=== PATIENT | male | born 1945 | race African-American/Black ===

== ENCOUNTER 2018-01-22 13:23 | Emergency (ER) | payer OTHER ==
[~2018-01-22] VITALS: Ht 185.4 cm; Wt 72.6 kg
[2018-01-22 14:04] LABS: ABSOLUTE BASOPHIL COUNT 0 /CUMM (0.0-0.2); ABSOLUTE EOSINOPHIL COUNT 0.1 /CUMM (0.0-0.7); ABSOLUTE GRANULOCYTE CT 4.6 /CUMM (1.4-6.5); ABSOLUTE MONOCYTE COUNT 0.6 /CUMM (0.10-0.60); BASOPHIL % 0.3 % (0.0-2.0); EOSINOPHIL % 1.5 % (0-5); GRANULOCYTE % 73.4 % (42.2-75.2); MEAN CORPUSCULAR HGB 31.4 PG (27.0-31.0); MEAN CORPUSCULAR HGB CONC 32.8 G/DL (33.0-37.0); MEAN CORPUSCULAR VOLUME 95.9 FL (80.0-94.0); MEAN PLATELET VOLUME 7.2 FL (7.4-10.4); PLATELET COUNT 303 /CUMM (130-400); RED BLOOD CELL CT 3.54 /CUMM (4.70-6.10); WHITE BLOOD CELL COUNT 6.3 /CUMM (4.8-10.8)
--- NOTE | 2018-01-22 14:10 | ED GENERAL ADULT ---
History of Present Illness General Chief Complaint: General Adult Stated Complaint: SENT BY [facility] FOR IV FLUIDS Source: patient, family, old records Exam Limitations: no limitations Vital Signs & Intake/Output Vital Signs & Intake/Output Vital Signs Date Time Temp Pulse Resp B/P B/P Pulse O2 O2 Flow FiO2 Mean Ox Delivery Rate 01/22 1547 96.6 86 19 96 Room Air 01/22 1444 Room Air 01/22 1352 98.0 96 18 112/75 99 Room Air Allergies Coded Allergies: NO KNOWN ALLERGIES (08/20/13) Reconcile Medications Allopurinol 100 MG TABLET 1 TAB PO DAILY GOUT (Reported) Amiodarone (Cordarone) 200 MG TAB 1 TAB PO DAILY HEART (Reported) Diclofenac Sodium (Voltaren) 1 % GEL..GRAM. 2 GM TOP BID PAIN (Reported) Duloxetine HCl 30 MG CAPSULE.DR 1 CAP PO DAILY DEPRESSION (Reported) Fentanyl 100 MCG/HOUR PATCH.TD72 1 PAT TOP Q3D PAIN (Reported) Fentanyl 25 MCG/HOUR PATCH.TD72 1 PAT TOP Q3D PAIN (Reported) Furosemide 20 MG TABLET 1 TAB PO DAILY WATER RETENTION (Reported) Lactulose 10 GRAM/15 ML SOLUTION 15 ML PO DAILY NEEDED PRN CONSTIPATION ( Reported) Levothyroxine Sodium (Levoxyl) 88 MCG TABLET 1 TAB PO DAILY AC THYROID ( Reported) Linaclotide (Linzess) 290 MCG CAPSULE 1 CAP PO DAILY GI (Reported) Lubiprostone (Amitiza) 24 MCG CAPSULE 1 CAP PO DAILY GI (Reported) Megestrol Acetate 400 MG/10 ML (40 MG/ML) ORAL.SUSP 10 ML PO DAILY GI ( Reported) Metoclopramide HCl (Reglan) 10 MG TABLET 2 TAB PO DAILY GI (Reported) Metoclopramide HCl (Reglan) 10 MG TABLET 1 TAB PO QPM GI (Reported) Naldemedine Tosylate (Symproic) 0.2 MG TABLET 1 TAB PO UNKNOWN (Reported) Naloxegol Oxalate (Movantik) 25 MG TABLET 1 TAB PO DAILY GI (Reported) Nystatin 1 BILLION UNIT POWDER.EA. 1 RANJITH TOP BID UNKNOWN (Reported) Ondansetron HCl 8 MG TABLET 1 TAB PO Q8P PRN NAUSEA/VOMITING (Reported) Oxycodone HCl 5 MG TABLET 1 TAB PO Q6-PRN PRN PAIN (Reported) Rabeprazole Sodium (Aciphex) 20 MG TABLET. 1 TAB PO BID GI (Reported) Rifaximin (Xifaxan) 550 MG TABLET 1 TAB PO BID GI (Reported) Sodium Bicarbonate 650 MG TABLET 1 TAB PO BID SUPPLEMENT (Reported) Tamsulosin HCl 0.4 MG CAP.ER.24H 1 CAP PO DAILY PROSTATE (Reported) Triage Note: PT SIB DR JIMENEZ FOR IVF, PT STATING HE HAS VOMITING EARLIER THIS WEEK, HAD BLOODWORK DONE "THAT SHOWED IM DRY". PT STATING HE IS FEELING WELL OTHERWISE, TOLERATING PO FLUIDS IN TRIAGE. Triage Nurses Notes Reviewed? yes HPI: Patient suffers from chronic constipation so takes a lot of stool softeners. Patient states that anything on that he gets into an episode where he has perfuse diarrhea. Patient started with diarrhea roughly 5 days ago. He denies any abdominal pain. He did have slight nausea and dry heaving a few days ago. That has subsequently resolved. Patient had outpatient blood work and showed his creatinine was 5.5. His baseline creatinine is 1.7. Patient denies any chest pain or shortness of breath. There are no fevers or chills. Past History Travel History Traveled to [place] past 21 day No Medical History Any Pertinent Medical History? see below for history Neurological: NONE EENT: NONE Cardiovascular: MURMUR Respiratory: asthma Gastrointestinal: COLON CA COLOSTOMY Hepatic: NONE Renal: NONE Musculoskeletal: NONE Psychiatric: NONE Endocrine: NONE Blood Disorders: NONE Cancer(s): MULTIPLE MYELOMA COLON CA History of MRSA: No History of VRE: No History of CDIFF: No Pneumonia Vaccine: 09/01/12 Influenza Vaccine: 08/22/04 Surgical History Surgical History: non-contributory Psychosocial History Who do you live with Spouse Services at Home Nursing What is your primary language Persian Tobacco Use: Never used ETOH Use: denies use Illicit Drug Use: denies illicit drug use Family History Hx Contributory? No Review of Systems Review of Systems Constitutional: Reports: no symptoms. EENTM: Reports: no symptoms. Respiratory: Reports: no symptoms. Cardiovascular: Reports: no symptoms. GI: Reports: see HPI, diarrhea. Genitourinary: Reports: no symptoms. Musculoskeletal: Reports: no symptoms. Skin: Reports: no symptoms. Neurological/Psychological: Reports: no symptoms. Hematologic/Endocrine: Reports: no symptoms. Immunologic/Allergic: Reports: no symptoms. All Other Systems: Reviewed and Negative Physical Exam Physical Exam General Appearance: well developed/nourished, alert, awake, anxious, mild distress Head: atraumatic, normal appearance Eyes: Bilateral: PERRL, EOMI. Ears, Nose, Throat: normal pharynx, normal ENT inspection, DRY MUCOSA Neck: normal inspection, supple, full range of motion Respiratory: normal breath sounds, chest non-tender, no respiratory distress, lungs clear Cardiovascular: regular rate/rhythm, normal peripheral pulses Gastrointestinal: normal bowel sounds, soft, non-tender, no organomegaly Extremities: normal inspection, normal capillary refill, normal range of motion, no edema Neurologic/Psych: no motor/sensory deficits, awake, alert, oriented x 3, normal mood/affect Skin: intact, normal color, warm/dry Core Measures ACS in differential dx? No CVA/TIA Diagnosis: No Sepsis Present: No Sepsis Focused Exam Completed? No Progress Differential Diagnoses I considered the following diagnoses in my evaluation of the patient: [Acute renal failure, dehydration, electrolyte abnormality] Plan of Care: Orders Procedure Date/time Status EKG 01/22 1426 Active URINALYSIS 01/22 1423 Active Saline Lock 01/22 1348 Active TROPONIN LEVEL 01/22 1348 Complete COMPREHENSIVE METABOLIC PANEL 01/22 1348 Complete CBC WITHOUT DIFFERENTIAL 01/22 1348 Complete Laboratory Tests 01/22/ 1400: Anion Gap 17 H, Estimated GFR 12 L, BUN/Creatinine Ratio 15.1, Glucose 213 H, Calcium 9.8, Total Bilirubin 0.4, AST 24, ALT 8 L, Alkaline Phosphatase 111, Troponin I 0.10, Total Protein 9.1 H, Albumin 4.2, Globulin 4.9 H, Albumin/ Globulin Ratio 0.9 L, CBC w Diff NO MAN DIFF REQ, RBC 3.54 L, MCV 95.9 H, MCH 31.4 H, MCHC 32.8 L, RDW 15.0 H, MPV 7.2 L, Gran % 73.4, Lymphocytes % 15.3 L, Monocytes % 9.5 H, Eosinophils % 1.5, Basophils % 0.3, Absolute Granulocytes 4.6, Absolute Lymphocytes 1.0 L, Absolute Monocytes 0.6, Absolute Eosinophils 0.1, Absolute Basophils 0 Initial ED EKG: NSR, LVH, nonspecific ST T wave chg Prior EKG: unchanged Comments: BLADDER SCAN 0 URINE Patient refuses to stay in the hospital. Patient verbally understands the risks of leaving prior, streaking the acute renal failure and acidosis. Patient understands that he may from this. Patient's is at his bedside. Patient states that this has happened before and he knows that he will be okay. Patient also has a history of HOCM so we need to be a little bit conservative with the aggressive hydration. Patient will receive 2 L of fluid here in the emergency department. Patient advised that he is leaving AGAINST MEDICAL ADVICE and that we strongly recommend that he stay for treatment. Patient again insists that he is leaving. Patient is awake alert and oriented 3. Patient is not suicidal or homicidal. Patient is competent to make this decision. Patient advised that he can return to the hospital at any time for further treatment. Departure Departure Disposition: HOME OR SELF CARE Condition: Guarded Clinical Impression Primary Impression: Acute renal failure Secondary Impressions: Metabolic acidosis Referrals: Gisele Pope MD (PCP/Family) Additional Instructions: Please return to the emergency department so we can finish treating you for your acute renal failure and acidosis. Departure Forms: Customer Survey General Discharge Information Critical Care Note Critical Care Note Critical Care Time: non-applicable
[2018-01-22] MEDS ORDERED: ALLOPURINOL100 M1 PO (14:30)
[2018-01-22] MEDS ORDERED: AMIODARONE HCL200 M1 PO (14:30)
[2018-01-22] MEDS ORDERED: AMITIZA24 MC1 PO (14:30)
[2018-01-22] MEDS ORDERED: FENTANYL1 EAC5 TOP (14:31)
[2018-01-22] MEDS ORDERED: DULOXETINE HCL30 MG PO (14:31)
[2018-01-22] MEDS ORDERED: FUROSEMIDE20 M1 PO (14:32)
[2018-01-22] MEDS ORDERED: FENTANYL1 EAC2 TOP (14:32)
[2018-01-22] MEDS ORDERED: LACTULOSE10 GM/152 PO (14:33)
[2018-01-22] MEDS ORDERED: LINZESS290 MC1 PO (14:34)
[2018-01-22] MEDS ORDERED: LEVOXYL88 MCG PO (14:34)
[2018-01-22] MEDS ORDERED: REGLAN10 M1 PO ×2 (14:35→14:36)
[2018-01-22] MEDS ORDERED: MEGESTROL400 MG/10 PO (14:35)
[2018-01-22] MEDS ORDERED: MOVANTIK25 M1 PO (14:36)
[2018-01-22] MEDS ORDERED: ONDANSETRON HCL8 MG PO (14:37)
[2018-01-22] MEDS ORDERED: NYSTATIN1 EAC8 TOP (14:37)
[2018-01-22] MEDS ORDERED: OXYCODONE HCL5 M1 PO (14:38)
[2018-01-22] MEDS ORDERED: SODIUM BICARBO650 M1 PO (14:39)
[2018-01-22] MEDS ORDERED: XIFAXAN550 M1 PO (14:39)
[2018-01-22] MEDS ORDERED: ACIPHEX20 M1 PO (14:39)
[2018-01-22] MEDS ORDERED: TAMSULOSIN HCL0.4 M1 PO (14:40)
[2018-01-22] MEDS ORDERED: SYMPROIC0.2 MG PO (14:40)
[2018-01-22] MEDS ORDERED: VOLTAREN100 GM TOP (14:41)
[2018-01-22 16:15] VITALS: BP 104/66
== END 2018-01-22 16:27 ==
LOC: ERH 13:23
PROVIDERS: Physician Assistant Medical
DX: N17.9 Acute kidney failure, unspecified (principal); E87.2 Acidosis
CPT/HCPCS: 93005; 93010; 96360; 96361